=== PATIENT | male | born 1945 ===

== ENCOUNTER → 2018-08-26 | Outpatient (CLI) | payer MEDICARE, OTHER ==
[~2018-08-26] MED LIST: ATOR10TA24 PO; MULT-111
== END ==
LOC: LAB 13:19
PROVIDERS: ATTEND Urology
DX: Z01.812 Encounter for preprocedural laboratory examination (principal); Z12.5 Encounter for screening for malignant neoplasm of prostate
CPT/HCPCS: 36415; 84154; 87081; G0103; 84153

== ENCOUNTER 2019-01-04 14:05 | Outpatient (RCR) | payer MEDICARE, OTHER | END 2019-01-05 14:46 | disposition home or self-care (01) | LOC: RAON 14:05 | PROVIDERS: ATTEND Radiology Radiation Oncology | DX: Z02.9 Encounter for administrative examinations, unspecified (principal) ==